=== PATIENT | male | born 1960 | race African-American/Black ===

== ENCOUNTER 2017-12-29 23:18 | Emergency (ER) | payer OTHER ==
[~2017-12-29] VITALS: Ht 182.9 cm; Wt 128.5 kg
[~2017-12-29 23:18] MED LIST: ACETYLCYSTEINE IH; ADVIL200 MG PO; ALLERGY 4-HOUR4 MG PO; AMLODIPINE BESYL5 MG PO; ASCORBIC ACID500 M3 PO; Aspirin E.C. PO; BACTERICIN30 GM TP; BUDESONIDE0.5 MG/2 M IH; CEFDINIR300 MG PO; CEFTIN250 MG PO; CHLORPHENIRAMINE4 MG PO; COLACE100 MG PO; COMBIVENT INH14.7 GM IH; COMBIVENT RESPIM4 GM IH; COMBIVENT200 INHALA IH; COZAAR50 MG PO; Chronulac,Cephulac,E PO; Colace PO; Cozaar PO; DELTASONE20 MG PO; DICLOFENAC SODI75 MG PO; DOUBLE ANTIBI28.4 GM TP; DUONEB 2.5-0.5 M3 ML AEROSOL; Dulcolax PR; FISH OIL300 MG PO; FLOMAX0.4 MG PO; FOLIC ACID1 MG PO; GENERLAC10 GM/15 M PO; HYDROCHLOROTHIA25 MG PO; HYDRODIURIL,ORE25 MG PO; Hydrodiuril,Oretic,E PO; KCL IV; LACTOSE PO; LACTULOSE10 GM/151 PO; LASIX20 MG PO; LEVAQUIN750 MG PO; LEVOFLOXACIN750 MG PO; LORTAB 5-325 M1 EACH PO; LOSARTAN POTASS50 MG PO; Lovenox SC; MEDROL DOSEPAK4 MG PO; MEN'S MULTI-VI1 EACH PO; METHOTREXATE2.5 MG PO; MUCINEX600 MG PO; MULTI-DAY VITA1 EACH PO; MULTIVITAMIN1 EAC2 PO; NIZORAL SHAMPO120 ML PO; NIZORAL120 ML TP; NORCO 5/3251 TABLET PO; NORVASC10 MG PO; Norvasc PO; OCEAN NASAL 0.645 ML BOTH NARES; OXYCODONE HCL5 MG PO; PREDNISONE10 MG PO; PREDNISONE20 MG PO; PREDNISONE5 MG PO; PREDNISONE50 MG PO; PROBIOTIC1 EAC1 PO; PROMETHAZINE HC25 M1 PO; PROVENTIL,2.5 MG/0.5 IH; PROVENTIL,2.5 MG/3 M IH; SALINE FLUSH 1010 ML IV; SALINE NASAL SP45 ML BOTH NARES; ST. JOSEPH ASPI81 MG PO; Senokot,Sennagen PO; TEARS NATURALE1 EACH OP; TREXALL10 MG PO; Tylenol Regular Stre PO; ULTRAM50 MG PO; VENTOLIN HFA18 GM IH; VISINE A.C300 DROP/1 BOTH EYES; VISINE ADVANCED15 ML BOTH EYES; VISINE15 ML BOTH EYES; VITAMIN D3400 UNI1 PO; ZESTRIL,PRINIVI10 M1 PO; ZESTRIL,PRINIVI10 MG PO; ZITHROMAX Z-PA250 MG PO; ZOFRAN ODT4 MG PO; ZOFRAN4 MG PO; ZYRTEC10 M2 PO; Zithromax PO; Zofran IV; [UNRECOGNIZED DRUG - OTHER] IV; lactulose; predniSONE PO; prednisone
[2017-12-30 00:30] VITALS: BP 113/80
[2017-12-30 01:01] LABS: HEMATOCRIT 42.7 % (38.0-50.0); HEMOGLOBIN 13.8 G/DL (12.5-16.6); MCHC 32.3 G/DL (30.0-36.0); PLATELET COUNT 181 K/uL (156-360); RBC DIS.WIDTH-CV 23.4 % (11.8-14.6); RED BLOOD COUNT 6.01 M/uL (4.00-5.50); WHITE BLOOD COUNT 9.4 K/uL (4.1-10.2)
[2017-12-30 01:06] LABS: ALBUMIN 3.6 g/dL (3.2-4.8); CHLORIDE 104 mEq/L (99-109); POTASSIUM 3.6 mEq/L (3.7-5.4); SODIUM 142 mEq/L (136-147)
[2017-12-30 01:08] LABS: GLUCOSE 94 mg/dL (70-99); TOTAL PROTEIN 6.2 g/dL (6.4-8.3)
[2017-12-30 01:10] LABS: TOTAL BILIRUBIN 0.7 mg/dL (0.0-1.0)
[2017-12-30 01:12] LABS: ALKALINE PHOSPHATASE 91 IU/L (3-129); CREATININE 0.9 mg/dL (0.6-1.3); GFR ESTIMATE (CALCULATED) > 59 mL/min/ (58.99-99999)
[2017-12-30 01:13] LABS: UREA NITROGEN (BUN) 13 mg/dL (9-23)
[2017-12-30 01:14] LABS: AST (GOT) 43 IU/L (2-34)
[2017-12-30 01:15] LABS: ALT (GPT) 32 IU/L (3-49)
[2017-12-30] MEDS ORDERED: LEVAQUIN750 MG PO (02:16)
== END 2017-12-30 02:17 | disposition home or self-care (01) ==
LOC: EME → EDBD 23:18 → EME 12-30 02:17
PROVIDERS: Emergency Medicine
DX: J18.9 Pneumonia, unspecified organism (principal); J44.0 Chronic obstructive pulmonary disease with (acute) lower respiratory infection; R09.02 Hypoxemia; J95.09 Other tracheostomy complication; D86.9 Sarcoidosis, unspecified; M25.511 Pain in right shoulder; M25.512 Pain in left shoulder; M54.6 Pain in thoracic spine; I10 Essential (primary) hypertension; Z79.52 Long term (current) use of systemic steroids; Z87.891 Personal history of nicotine dependence
CPT/HCPCS: 71045; 80053; 85027; 94799; 99281; 99285; J1885

== ENCOUNTER 2018-01-31 08:54 | Emergency (ER) | payer OTHER ==
[~2018-01-31] VITALS: Ht 180.3 cm; Wt 127.1 kg
[2018-01-31] MEDS ORDERED: NAPROSYN500 MG PO (11:30)
[2018-01-31 11:39] VITALS: BP 151/93
== END 2018-01-31 11:41 | disposition home or self-care (01) ==
LOC: EME 08:54
DX: S16.1XXA Strain of muscle, fascia and tendon at neck level, initial encounter (principal); V49.40XA Driver injured in collision with unspecified motor vehicles in traffic accident, initial encounter; Y92.410 Unspecified street and highway as the place of occurrence of the external cause; I10 Essential (primary) hypertension; E11.9 Type 2 diabetes mellitus without complications; Z87.891 Personal history of nicotine dependence; Z88.5 Allergy status to narcotic agent; Z88.6 Allergy status to analgesic agent
CPT/HCPCS: 72050; 99281; 99283

== ENCOUNTER 2018-02-13 20:31 | Emergency (ER) | payer OTHER ==
[~2018-02-13] VITALS: Ht 180.3 cm; Wt 123.9 kg
[~2018-02-13 20:31] MED LIST changes: +NAPROSYN500 MG PO
[2018-02-13 21:41] LABS: CHLORIDE 104 mEq/L (99-109); POTASSIUM 3.3 mEq/L (3.7-5.4); SODIUM 141 mEq/L (136-147)
[2018-02-13 21:42] LABS: BASOPHIL (%) 0.8 % (0-1); BASOPHIL COUNT 0.1 K/uL (0-0.1); EOSINOPHIL (%) 1.4 % (0-5); EOSINOPHIL COUNT 0.1 K/uL (0-0.3); HEMATOCRIT 44.3 % (38.0-50.0); HEMOGLOBIN 14.4 G/DL (12.5-16.6); IMMATURE GRANULOCYTE (%) 0.3 % (0.0-0.7); LYMPHOCYTE (%) 34.3 % (15-42); LYMPHOCYTE COUNT 2.2 K/uL (1.0-2.8); MCH 23.2 PG (29.0-34.0); MCHC 32.5 G/DL (30.0-36.0); MCV 71.5 FL (86-99); MONOCYTE (%) 15.7 % (3-12); NEUTROPHIL (%) 47.5 % (45-76); NEUTROPHIL COUNT 3.1 K/uL (1.8-6.4); PLATELET COUNT 207 K/uL (156-360); RBC DIS.WIDTH-CV 20.2 % (11.8-14.6); WHITE BLOOD COUNT 6.5 K/uL (4.1-10.2)
[2018-02-13 21:43] LABS: GLUCOSE 87 mg/dL (70-99)
[2018-02-13 21:47] LABS: CREATININE 0.8 mg/dL (0.6-1.3); GFR ESTIMATE (CALCULATED) > 59 mL/min/ (58.99-99999); UREA NITROGEN (BUN) 9 mg/dL (9-23)
[2018-02-13 21:55] LABS: APPEARANCE CLEAR ((CLEAR)); BILIRUBIN NEGATIVE; BLOOD SMALL; COLOR YELLOW ((YELLOW)); GLUCOSE (STRIP) NEGATIVE; KETONES NEGATIVE; LEUKOCYTES LARGE; NITRITE POSITIVE; PROTEIN (STRIP) 30; SPECIFIC GRAVITY 1.008 (1.000-1.030); UROBILINOGEN 0.2 MG/DL (0.2-1.0)
[2018-02-13] MEDS ORDERED: AZITHROMYCIN250 MG PO (22:03)
[2018-02-13 22:18] LABS: BACTERIA RARE /HPF; EPITHELIAL CELLS RARE /HPF; MUCUS TRACE /LPF; UCUL ADDED? YES; WHITE BLOOD CELLS TNTC /HPF (0-5)
[2018-02-13] MEDS ORDERED: LEVOFLOXACIN750 MG PO (22:33)
[2018-02-13 22:46] VITALS: BP 145/99
== END 2018-02-13 22:48 | disposition home or self-care (01) ==
LOC: EME → EDBD 20:31 → EME 22:48
PROVIDERS: Emergency Medicine
DX: J18.9 Pneumonia, unspecified organism (principal); N39.0 Urinary tract infection, site not specified; B95.7 Other staphylococcus as the cause of diseases classified elsewhere; Z16.39 Resistance to other specified antimicrobial drug; Z93.0 Tracheostomy status; R94.31 Abnormal electrocardiogram [ECG] [EKG]; Z87.891 Personal history of nicotine dependence; Z87.19 Personal history of other diseases of the digestive system; Z88.5 Allergy status to narcotic agent; Z88.6 Allergy status to analgesic agent
CPT/HCPCS: 71046; 80048; 81003; 85025; 87077; 87086; 87186; 93005; 99281; 99284

== ENCOUNTER 2018-02-27 12:26 | Emergency (ER) | payer OTHER ==
[~2018-02-27 12:26] MED LIST changes: +AZITHROMYCIN250 MG PO
[2018-02-27 12:51] LABS: AMYLASE 161 IU/L (1-118); CHLORIDE 102 mEq/L (99-109); POTASSIUM 3.5 mEq/L (3.7-5.4); SODIUM 141 mEq/L (136-147)
[2018-02-27 12:52] LABS: BASOPHIL (%) 1.1 % (0-1); BASOPHIL COUNT 0.1 K/uL (0-0.1); EOSINOPHIL (%) 0.9 % (0-5); EOSINOPHIL COUNT 0.1 K/uL (0-0.3); HEMATOCRIT 46.5 % (38.0-50.0); HEMOGLOBIN 15.1 G/DL (12.5-16.6); IMMATURE GRANULOCYTE (%) 0.3 % (0.0-0.7); MCH 23.5 PG (29.0-34.0); MCHC 32.5 G/DL (30.0-36.0); MCV 72.3 FL (86-99); MONOCYTE (%) 10.7 % (3-12); MONOCYTE COUNT 0.7 K/uL (0-0.8); NEUTROPHIL COUNT 3.6 K/uL (1.8-6.4); PLATELET COUNT 220 K/uL (156-360); RBC DIS.WIDTH-CV 19.9 % (11.8-14.6); RBC DIS.WIDTH-SD 48.2 % (39-53); RED BLOOD COUNT 6.43 M/uL (4.00-5.50); WHITE BLOOD COUNT 6.4 K/uL (4.1-10.2)
[2018-02-27 12:53] LABS: GLUCOSE 97 mg/dL (70-99)
[2018-02-27 12:56] LABS: SERUM ETHYL ALCOHOL < 10 mg/dL
[2018-02-27 12:57] LABS: CREATININE 0.8 mg/dL (0.6-1.3); GFR ESTIMATE (CALCULATED) > 59 mL/min/ (58.99-99999); UREA NITROGEN (BUN) 9 mg/dL (9-23)
[2018-02-27 13:00] LABS: LIPASE 11 U/L (1.0-51.0)
[2018-02-27 13:09] LABS: APPEARANCE CLEAR ((CLEAR)); BILIRUBIN NEGATIVE; BLOOD NEGATIVE; COLOR STRAW ((YELLOW)); GLUCOSE (STRIP) NEGATIVE; KETONES NEGATIVE; LEUKOCYTES NEGATIVE; NITRITE NEGATIVE; PROTEIN (STRIP) NEGATIVE; SPECIFIC GRAVITY 1.008 (1.000-1.030); UCUL ADDED? NO; UROBILINOGEN 0.2 MG/DL (0.2-1.0)
[2018-02-27 13:19] LABS: AMPHETAMINE NEGATIVE (500 ng/mL); BARBITURATES NEGATIVE (200 ng/mL); BENZODIAZEPINES NEGATIVE (150 ng/mL); BUPRENORPHINE NEGATIVE (10 ng/mL); COCAINE NEGATIVE (150 ng/mL); METHADONE NEGATIVE (200 ng/mL); METHAMPHETAMINE NEGATIVE (500 ng/mL); OPIATES (MORPHINE) PRESUMPTIVE POSITIVE (100 ng/mL); OXYCODONE NEGATIVE (100 ng/mL); PHENCYCLIDINE NEGATIVE (25 ng/mL); PROPOXYPHENE NEGATIVE (300 ng/mL); THC CANNABINOIDS NEGATIVE (50 ng/mL); TRICYCLIC ANTIDEPRESSANTS NEGATIVE (300 ng/mL)
[2018-02-27] MEDS ORDERED: PERCOCET 5/31 TABLET PO (14:45)
== END 2018-02-27 15:08 | disposition home or self-care (01) ==
LOC: TRA 12:26
PROVIDERS: Emergency Medicine
DX: S20.219A Contusion of unspecified front wall of thorax, initial encounter (principal); S40.011A Contusion of right shoulder, initial encounter; V89.2XXA Person injured in unspecified motor-vehicle accident, traffic, initial encounter; Y92.410 Unspecified street and highway as the place of occurrence of the external cause; R51 Headache; M54.2 Cervicalgia; M54.9 Dorsalgia, unspecified; M79.605 Pain in left leg; D86.9 Sarcoidosis, unspecified; I10 Essential (primary) hypertension; Z93.0 Tracheostomy status; Z90.49 Acquired absence of other specified parts of digestive tract; Z87.891 Personal history of nicotine dependence; Z88.5 Allergy status to narcotic agent; Z88.6 Allergy status to analgesic agent
CPT/HCPCS: 70450; 71260; 72125; 73030; 73080; 73502; 74177; 80048; 81003; 82150; 83690; 84999; 85025; 86850; 86900; 86901; 93005; G0480; J3010